=== PATIENT | male | born 1965 | race Caucasian/White ===

== ENCOUNTER 2025-02-06 08:43 | Day surgery (SDC) | payer OTHER, SELFPAY ==
[2025-02-06] VITALS (14 sets, daily range): BP systolic 103–143; BP diastolic 65–90; PULSE 57–76; RESP 14–20; TEMP 36.4–36.6; O2SAT 95–100; BMI 24.9
[2025-02-06] MEDS: LACTATED RINGERS 1000 ML 1,000 ML 100 ML IV (09:15)
[2025-02-06] MEDS: SODIUM CHLORIDE 0.9 % (FLUSH) 10 ML SYRINGE IVF (09:15)
[2025-02-06] MEDS: CEFAZOLIN 1 GM inj IVP (10:56)
[2025-02-06] MEDS: BUPIVACAINE 0.25% 30 ML INJECTION (11:00)
--- NOTE | 2025-02-06 11:07 | SUR.OPER ---
PATIENT QUESTIONS ANSWERED SATISFACTORILY PREOPERATIVELY. PATIENT BROUGHT TO OR #2 PER CART. Patient positioned supine on OR #2 bed. The perioperative team tucked arms bilaterally at patient sides in a neutral position WITH THE DRAW SHEET. Final approval of positioning by surgeon.
--- NOTE | 2025-02-06 12:06 | P.ANES_ITS ---
Anesthesia Charges Start Date/Time Anesthesia Start Date: 02/06/25 Anesthesia Start Time: 10:35 Stop Date/Time Anesthesia Stop Date: 02/06/25 Anesthesia Stop Time: 12:07 Coding CPT Codes CPT Codes: ANESTH REPAIR OF HERNIA - 05675 ([id number]) P1 - NORMAL HEALTHY PATIENT, QK - OPTIC FIBRE DRAWER 2-4 CNCRNT ANES PROC, QX - GOVERNMENT GUARD SVRani W/ MED DIRECTION
--- NOTE | 2025-02-06 12:06 | W.ANESCHARGE ---
Anesthesia Charges Start Date/Time Anesthesia Start Date: 02/06/25 Anesthesia Start Time: 10:35 Stop Date/Time Anesthesia Stop Date: 02/06/25 Anesthesia Stop Time: 12:07 Coding CPT Codes CPT Codes: ANESTH REPAIR OF HERNIA - 75375 ([id number]) P1 - NORMAL HEALTHY PATIENT, QK - SENIOR RECRUITER 2-4 CNCRNT ANES PROC, QX - HOG DROPPER SVRani W/ MED DIRECTION
--- NOTE | 2025-02-06 12:09 | P.ANES_ITS ---
Anesthesia Charges Start Date/Time Anesthesia Start Date: 02/06/25 Anesthesia Start Time: 10:35 Stop Date/Time Anesthesia Stop Date: 02/06/25 Anesthesia Stop Time: 12:07 Coding CPT Codes CPT Codes: ANESTH SURGERY OF ABDOMEN - 01804 ([id number]) P1 - NORMAL HEALTHY PATIENT, QK - ROPE RIDER 2-4 CNCRNT ANETrever PROC, QX - SUPERVISOR BRAKE REPAIR SVRani W/ MED DIRECTION
--- NOTE | 2025-02-06 12:09 | PM.GSPRC ---
Operative Note Date of procedure: 02/06/25 Pre-op diagnosis: Right inguinal hernia Post-op diagnosis: Same Type of Procedure: Laparoscopic right inguinal hernia repair with placement of mesh, TEP Indications: Patient is a 59-year-old male who presented to clinic with a symptomatic right inguinal hernia. Risks and benefits of operative intervention were discussed at length with the patient. Risks included but was not limited to: Bleeding, infection, risk of damage to surrounding structures, possible need for additional procedures, possible need to convert to an open operation and postoperative complications such as pneumonia, pulmonary emboli or CA. All questions and concerns were addressed with the patient agreeing to proceed. Procedure Description: After discussing the risks and benefits of the procedure, the patient signed informed consent.? The operative site was marked and the patient was brought to the operating room and placed on the operating table in supine position.? Care was taken to pad the patient's pressure points.?? The patient was then intubated by anesthesia.?? The operative site was then prepped and draped in the usual sterile fashion.? A time-out was then performed. A curvilinear incision was made below the umbilicus. Dissection was carried down to subcutaneous tissue until the anterior rectus fascia was encountered. This was incised off the midline. The rectus muscles were then retracted exposing the posterior fascia. A space maker port with a dissecting balloon was then introduced. The preperitoneal space was inflated under direct vision. The balloon was then removed and the preperitoneal space insufflated. A 10 mm 30 degree scope was then advanced and the area was surveyed for bleeding. Dissection began on the right side. Yan's ligament and the pubic bone was exposed medially. Following this dissection was carried out laterally. A small direct and indirect defect was noted. The sac was dissected free from the cord structures using a combination of sharp and blunt dissection. Once the sac was completely reduced, the cord structures were dissected circumfrentially and a piece of Parietex mesh for the appropriate side was placed into the abdomen. This was positioned around the cord structures. A Tacker was used to attach the mesh medially at Yan's ligament. Once this was completed the sac was placed on top of the mesh and the preperitoneal space desufflated under direct vision. The ports were removed. The fascia from the infraumbilical port was closed with 0 Vicryl. The skin incisions were closed with absorbable subcuticular suture. Sterile dressings were then applied. The scrotum was examined to ensure that the right testicle remained down. Instrument sponge and needle counts were correct at the end of the case. Findings: Small direct and indirect right inguinal hernia Anesthesia: QUYEN Surgeon: Nataly Ahuja MD Estimated blood loss (mL): 5 Condition: stable Disposition: PACU
--- NOTE | 2025-02-06 12:09 | W.ANESCHARGE ---
Anesthesia Charges Start Date/Time Anesthesia Start Date: 02/06/25 Anesthesia Start Time: 10:35 Stop Date/Time Anesthesia Stop Date: 02/06/25 Anesthesia Stop Time: 12:07 Coding CPT Codes CPT Codes: ANESTH SURGERY OF ABDOMEN - 03542 ([id number]) P1 - NORMAL HEALTHY PATIENT, QK - CARDIOVASCULAR RN 2-4 CNCRNT ANETrever PROC, QX - FORM BUILDING SUPERVISOR SVRani W/ MED DIRECTION
--- NOTE | 2025-02-06 12:11 | W.PM.H&PU ---
History & Physical Update History & Physical Update H&P Reviewed and patient assessed: No changes noted
--- NOTE | 2025-02-06 12:18 | SUR.PHASEI ---
Patient came to PACU, talkative, stated pain is tolerable,no nausea.
[2025-02-06] MEDS: fentaNYL 100 MCG/2 ML inj 50 MCG IVP (12:23)
[2025-02-06] MEDS: HYDROCODONE-ACETAMIN 5-325 MG 1 TAB PO (13:17)
== END 2025-02-06 13:45 | disposition home or self-care (01) ==
PROVIDERS: PCP Family Medicine; Visit Provider Surgery
PROC: (CPT 49650; principal; 2025-02-06 10:15)
DX: K40.90 Unilateral inguinal hernia, without obstruction or gangrene, not specified as recurrent (principal)
CPT/HCPCS: 49650; 00830; 00840; 00860; A9270; C1781; J0665; J0690; J1100; J1885; J2405; J2704; J2710; J3010; J7120